=== PATIENT | male | born 1940 | race Caucasian/White ===

== ENCOUNTER 2019-01-04 13:12 | Outpatient (CLI) | payer MEDICARE, BC, OTHER ==
--- NOTE | 2019-01-04 14:24 | CT ---
CT abdomen and pelvis noncontrast HISTORY: Hematuria. FINDINGS: Each renal collecting system, ureter, and urinary bladder are decompressed. Within the mid left ureter is a 2 mm calculus. There is a 2 mm calculus within a nondilated calyx at the superior pole left kidney and a 3 mm calculus at the inferior pole. A 3 mm calculus is also present within a n ondilated calyx at the midportion right kidney. Lack of contrast limits evaluation for other abnormalities. Calcification throughout the arterial str uctures with mild ectasia of the lower abdominal aorta. Posterior disc bulge at the L4-5 level. Degenerative changes throughout the lumbar spine. Gallbladder surgically absent. IMPRESSION: Tiny nonobstructing mid left ureteral calculus. Additional small nonobstructing bilateral renal calculi. Atherosclerosis.
== END 2019-01-04 13:13 | disposition home or self-care (01) ==
LOC: SCSCT 13:12
PROVIDERS: ATTEND Family Medicine
DX: R31.29 Other microscopic hematuria (principal); N20.2 Calculus of kidney with calculus of ureter; I70.90 Unspecified atherosclerosis
CPT/HCPCS: 74176

== ENCOUNTER 2019-03-22 13:03 | Outpatient (CLI) | payer MEDICARE, BC, OTHER ==
--- NOTE | 2019-03-22 13:46 | ULT ---
RIGHT LOWER EXTREMITY VENOUS DUPLEX STUDY: INDICATIONS: Right lower extremity pain and edema. TECHNIQUE: The veins of the right lower extremity are evaluated with color Doppler, spectral analysis and compre ssion. FINDINGS: The deep veins show normal blood flow and compression. No evidence of DVT. Soft tissue ultrasound of the lateral mid tibial region, performed in an area of palpable concern. There is a hypoechoic area i n the subcutaneous tissues, measuring approximately 0.5 x 2.0 x 2.8 cm, which may represent focal flu id. IMPRESSION: 1. No evidence of right lower extremity deep venous thrombosis. 2. In the lateral right nam region at area of concern is a hypoechoic collection with measurements g iven above. POS: [facility]
== END 2019-03-22 13:04 | disposition home or self-care (01) ==
LOC: SCSULT 13:03
PROVIDERS: ATTEND Family Medicine
DX: M79.89 Other specified soft tissue disorders (principal); R60.0 Localized edema

== ENCOUNTER 2019-06-07 07:33 | Outpatient (CLI) | payer MEDICARE, BC, OTHER ==
--- NOTE | 2019-06-07 12:23 | PET ---
PET CT: HISTORY: A 78-year-old male with diffuse large B-cell lymphoma. The patient was found to have a lesion behind his right orbit on an MRI which is not available for correlation. The patient has been in remission since 2013 after 4 rounds of [facility]. Exam requested to evaluate for recurrence/relapse and subseque nt therapy. TECHNIQUE: PET scanning with CT attenuation correction was performed from the vertex through the proximal thighs following the intravenous administration of 10.7 mCi [id number]. COMPARISON: PET scan of 11/12/2013. FINDINGS: No harry hypermetabolism is seen in the neck, chest, axillae, abdomen, pelvis, or inguinal regions. No hypermetabolic pulmonary nodules, liver, adrenal, or skeletal lesions are seen. There is focal increased uptake noted in the anterior aspect of the oral cavity with an SUV of 7. Th is is generally artifactual. Recommend direct visualization. The CT scan used for attenuation correction demonstrates no evidence of pleural effusions or ascites. The spleen is enlarged measuring 16.5 cm in length. IMPRESSION: 1. No evidence of viable lymphoma in the lymph nodes of the neck, chest, abdomen, or pelvis. 2. Nonspecific uptake in the anterior oral cavity is likely artifactual. Recommend direct visualiza tion. 3. Splenomegaly. POS: [facility]
== END 2019-06-07 07:34 | disposition home or self-care (01) ==
LOC: PET 07:33
PROVIDERS: ATTEND Internal Medicine Medical Oncology
DX: C83.30 Diffuse large B-cell lymphoma, unspecified site (principal); R16.1 Splenomegaly, not elsewhere classified
CPT/HCPCS: 78815; A9552

== ENCOUNTER 2020-08-21 12:25 | Outpatient (CLI) | payer MEDICARE, BC, OTHER | END 2020-08-21 12:26 | disposition home or self-care (01) | LOC: BICULT 12:25 | PROVIDERS: ATTEND Urology | DX: N28.89 Other specified disorders of kidney and ureter (principal) | CPT/HCPCS: 76770 ==

== ENCOUNTER 2021-01-19 10:56 | Outpatient (CLI) | payer MEDICARE, BC, OTHER ==
[2021-01-19 12:30] LABS: Hemoglobin 13.9 g/dL (13.5-17.5); Mean Corpuscular HGB CONC 31.7 g/dL (32.0-36.0); Mean Corpuscular Hemoglobin 27.3 pg (27.0-33.0); Mean Corpuscular Volume 86.1 fl (81.2-95.1); Mean Platelet Volume 9.3 fl (7.4-10.4); Platelet Count 140 10x3/uL (150-450); RBC Distribution Width 15.8 % (11.5-14.5); Red Blood Cell (RBC) Count 5.09 10x6/uL (4.32-5.72); White Blood Cell (WBC) Count 8.5 10x3/uL (3.5-10.5)
[2021-01-19 12:41] LABS: Anion Gap 14 mmol/L (10-20); BUN (Urea Nitrogen) 33 mg/dL (8.4-25.7); Calc. Creatinine Clearance 0 mL/min (70-130); Carbon Dioxide 21 mmol/L (23-31); Chloride 109 mmol/L (98-107); Glucose 103 mg/dL (83-110); Potassium 4.1 mmol/L (3.5-5.1); Sodium 140 mmol/L (136-145)
[2021-01-19 12:47] LABS: PTT 28.5 sec (22.0-33.0); Prothrombin Time 10.7 sec (9.5-12.1)
[2021-01-19 22:56] LABS: SARS-CoV-2 PCR by NAA Not Detected (NotDetected)
== END 2021-01-19 10:57 | disposition home or self-care (01) ==
LOC: LABBT 10:56
PROVIDERS: ATTEND Urology
DX: Z01.818 Encounter for other preprocedural examination (principal); N40.1 Benign prostatic hyperplasia with lower urinary tract symptoms; R33.8 Other retention of urine; N20.0 Calculus of kidney; R97.20 Elevated prostate specific antigen [PSA]; N28.89 Other specified disorders of kidney and ureter; Z20.822 Contact with and (suspected) exposure to COVID-19
CPT/HCPCS: 80048; 85027; 85610; 85730; 93005; U0003; U0005; 81001; 87077; 87086; 93010

== ENCOUNTER 2021-01-22 08:17 | Observation (INO) | payer MEDICARE, BC, OTHER ==
[2021-01-22] MEDS ORDERED: Levofloxacin 500 mg/D5W 100 ml Premix Bag ONE (10:08)
[2021-01-22] MEDS ORDERED: B & O 30 MG SUPP ONE (11:08)
[2021-01-22] MEDS ORDERED: Fentanyl 100 MCG/2 ML VIAL ONE (11:26)
[2021-01-22] MEDS ORDERED: hydrALAZINE 20 MG/ML VIAL ONE (13:26)
[2021-01-22] MEDS ORDERED: Morphine 4 MG/ML VIAL ONE ×2 (13:44→13:59)
[2021-01-22] MEDS ORDERED: ePHEDrine Sulfate 50 MG/10 ML VIAL ONE (13:47)
[2021-01-22 14:51] LABS: Troponin I Less than 0.010 ng/mL (< 0.028)
[2021-01-22 14:55] LABS: Hemoglobin 13.9 g/dL (14.0-18.0); Mean Corpuscular HGB CONC 34.1 g/dL (32.0-36.0); Mean Corpuscular Hemoglobin 29.4 pg (27.0-31.0); Mean Corpuscular Volume 86.2 fL (78.0-98.0); Mean Platelet Volume 8.1 fL (7.4-10.4); Platelet Count 154 thou/uL (130-400); Red Blood Cell (RBC) Count 4.74 mill/uL (4.70-6.10); White Blood Cell (WBC) Count 7.2 thou/uL (4.8-10.8)
[2021-01-22 14:57] LABS: Anion Gap 12 mmol/L (10-20); BUN (Urea Nitrogen) 32 mg/dL (8.4-25.7); Calc. Creatinine Clearance 52 mL/min (70-130); Calcium 9.1 mg/dL (7.8-10.44); Carbon Dioxide 22 mmol/L (23-31); Chloride 109 mmol/L (98-107); Glucose 121 mg/dL (83-110); Potassium 3.5 mmol/L (3.5-5.1); Sodium 139 mmol/L (136-145)
[2021-01-22 15:05] LABS: INR-International Normal Ratio 1.1; PTT 31.1 sec (22.9-36.1); Prothrombin Time 14.1 sec (12.0-14.7)
[2021-01-22 15:18] LABS: Band 1 % (5-11); Eosinophils 1 % (0-10); Lymphocytes 16 % (21-51); MDiff Complete? YES; Monocytes 20 % (0-10); Neutrophil 48 % (42-75); Platelet Morphology Comment Appears Adequate; RBC Morphology Normal; Reactive Lymphocytes 13 % (0-10)
[2021-01-22] MEDS ORDERED: Acetaminophen 325 MG TAB PO PRN (16:14)
[2021-01-22] MEDS ORDERED: Ondansetron PF 4 MG/2 ML Vial IVP PRN (16:14)
[2021-01-22] MEDS ORDERED: Calcium Carbonate 500 MG ChewTAB PO PRN (16:14)
[2021-01-22] MEDS ORDERED: Senokot S 8.6-50 MG TAB PO PRN (16:14)
[2021-01-22] MEDS ORDERED: Guaifenesin DM 100-10/5 ML UDCUP PO PRN (16:14)
[2021-01-22] MEDS ORDERED: Bisacodyl 10 MG SUPP PR PRN (16:14)
[2021-01-22 16:29] LABS: Troponin I 0.011 ng/mL (< 0.028)
[2021-01-22 18:28] VITALS: BMI 27.2
[2021-01-22] MEDS: Sodium Chloride 5% Opth 15 ML BOT EA EYE SCH (18:34)
[2021-01-22] MEDS: methylPREDNISolone Sod Succ 40 MG VIAL IVP SCH (21:04)
[2021-01-23 04:52] LABS: #Lymphocytes 0.6 thou/uL (1.20-3.40); #Monocytes 0.4 thou/uL (0.11-0.59); %Lymphocytes 6.2 % (21.0-51.0); %Monocytes 4.3 % (0.0-10.0); %Neutrophils 89.4 % (42.0-75.0); Hemoglobin 13.7 g/dL (14.0-18.0); Mean Corpuscular HGB CONC 33.4 g/dL (32.0-36.0); Mean Corpuscular Hemoglobin 28.5 pg (27.0-31.0); Mean Corpuscular Volume 85.3 fL (78.0-98.0); Mean Platelet Volume 7.9 fL (7.4-10.4); Platelet Count 157 thou/uL (130-400); RBC Distribution Width 14.8 % (11.5-14.5); Red Blood Cell (RBC) Count 4.79 mill/uL (4.70-6.10); White Blood Cell (WBC) Count 8.9 thou/uL (4.8-10.8)
[2021-01-23 05:46] LABS: AST (SGOT) 35 U/L (5-34); Anion Gap 19 mmol/L (10-20); BUN (Urea Nitrogen) 24 mg/dL (8.4-25.7); Calc. Creatinine Clearance 56 mL/min (70-130); Calcium 8.4 mg/dL (7.8-10.44); Carbon Dioxide 13 mmol/L (23-31); Chloride 107 mmol/L (98-107); Globulin 2.7 g/dL (2.4-3.5); Glucose 143 mg/dL (83-110); Potassium 4.5 mmol/L (3.5-5.1); Protein, Total 6.7 g/dL (5.8-8.1); Sodium 134 mmol/L (136-145)
[2021-01-23 06:06] LABS: Alkaline Phosphatase 89 U/L (40-110)
[2021-01-23 06:08] LABS: ALT (SGPT) 27 U/L (8-55)
[2021-01-23] MEDS: methylPREDNISolone Sod Succ 40 MG VIAL IVP SCH ×2 (07:24→14:40)
[2021-01-23] MEDS ORDERED: Polyethylene Glycol 3350 17 GM Packet PO SCH (09:00)
[2021-01-23] MEDS ORDERED: Tamsulosin HCl 0.4 MG CAP PO SCH (09:00)
[2021-01-23] MEDS ORDERED: Amlodipine 5 MG TAB PO SCH (09:00)
[2021-01-23] MEDS: Sodium Chloride 5% Opth 15 ML BOT EA EYE SCH ×2 (09:16→13:20)
[2021-01-23] MEDS ORDERED: Ferrous Sulfate 325 MG TAB PO SCH (12:00)
[2021-01-23 13:17] LABS: Anion Gap 15 mmol/L (10-20); BUN (Urea Nitrogen) 26 mg/dL (8.4-25.7); Calc. Creatinine Clearance 58 mL/min (70-130); Carbon Dioxide 18 mmol/L (23-31); Chloride 104 mmol/L (98-107); Glucose 166 mg/dL (83-110); Magnesium 1.6 mg/dL (1.6-2.6); Phosphorus 3.3 mg/dL (2.3-4.7); Potassium 3.7 mmol/L (3.5-5.1); Sodium 133 mmol/L (136-145)
[2021-01-23 13:28] VITALS: BP 130/78; TEMP 98
== END 2021-01-23 16:19 | disposition home or self-care (01) ==
LOC: SDC 08:17 → 2NO 16:15
PROVIDERS: ADMIT Internal Medicine; ATTEND Internal Medicine
PROC: 0T7D8DZ Dilation of Urethra with Intraluminal Device, Via Natural or Artificial Opening Endoscopic (ICD-10-PCS; principal; 2021-01-22)
DX: N40.1 Benign prostatic hyperplasia with lower urinary tract symptoms (principal); R33.8 Other retention of urine; R06.02 Shortness of breath; R07.2 Precordial pain; I12.9 Hypertensive chronic kidney disease with stage 1 through stage 4 chronic kidney disease, or unspecified chronic kidney disease; N18.30 Chronic kidney disease, stage 3 unspecified; D63.1 Anemia in chronic kidney disease; K21.9 Gastro-esophageal reflux disease without esophagitis; E87.2 Acidosis; E87.1 Hypo-osmolality and hyponatremia; M19.90 Unspecified osteoarthritis, unspecified site; N20.0 Calculus of kidney; Z85.72 Personal history of non-Hodgkin lymphomas; Z85.828 Personal history of other malignant neoplasm of skin; Z87.891 Personal history of nicotine dependence; Z79.82 Long term (current) use of aspirin; Z79.899 Other long term (current) drug therapy; Z88.5 Allergy status to narcotic agent
CPT/HCPCS: 71045; 80048 ×2; 80053; 83735; 83880; 84100; 84484 ×2; 85025 ×2; 85379; 85610; 85730; 87040; 93005; 94640; 96374; 96376; 97139 ×4; C9740; G0378 ×2; L8699; 36415; 93010; J0360; J1956; J2270; J2920; J3010; J7620

== ENCOUNTER 2021-01-24 18:09 | Emergency (ER) | payer MEDICARE, BC, OTHER ==
[2021-01-24] MEDS ORDERED: Morphine 4 MG/ML VIAL ONE (19:51)
== END 2021-01-24 22:19 | disposition home or self-care (01) ==
LOC: ERS 18:09
DX: T83.091A Other mechanical complication of indwelling urethral catheter, initial encounter (principal); R33.9 Retention of urine, unspecified; I10 Essential (primary) hypertension; Z87.891 Personal history of nicotine dependence
CPT/HCPCS: 51702; J2270

== ENCOUNTER 2023-08-09 12:28 | Observation (INO) | payer MEDICARE, BC, OTHER ==
[2023-08-09] MEDS ORDERED: Senokot S 8.6-50 MG TAB PO PRN (16:48)
[2023-08-09] MEDS: Pantoprazole DR 40 MG TAB PO SCH (17:57)
[2023-08-09] MEDS: Sodium Chloride 0.9% 500 ML IV SCH (17:57)
[2023-08-09 19:04] LABS: Band 2 % (5-11); Hypochromia SLIGHT = 6-15 cells HPF (0-5); Lymphocytes 51 % (21-51); Monocytes 3 % (0-10); Neutrophil 45 % (42-75); Nucleated RBC (Manual Ct) 6 % (0); Platelet Adequacy Comment Platelets Decreased; Polychromasia SLIGHT = 2-3 cells HPF (0-2); Tear Drops SLIGHT = 2-5 cells HPF (0-1)
[2023-08-09 19:09] LABS: Hematocrit 25.9 % (42.0-52.0); Hemoglobin 8.3 g/dL (14.0-18.0); Mean Corpuscular Hemoglobin 30.2 pg (27.0-31.0); Mean Corpuscular Volume 94.2 fL (78.0-98.0); Mean Platelet Volume 10.3 fL (7.4-10.4); Platelet Count 86 10x3/uL (130-400); RBC Distribution Width 16.2 % (11.5-14.5); Red Blood Cell (RBC) Count 2.75 mill/uL (4.70-6.10)
[2023-08-09] MEDS: Atorvastatin Calcium 10 MG TAB PO SCH (21:15)
[2023-08-09 23:55] LABS: Hematocrit 23.4 % (42.0-52.0); Hemoglobin 7.4 g/dL (14.0-18.0); Mean Corpuscular HGB CONC 31.6 g/dL (32.0-36.0); Mean Corpuscular Hemoglobin 29.6 pg (27.0-31.0); Mean Corpuscular Volume 93.6 fL (78.0-98.0); Platelet Count 92 10x3/uL (130-400); RBC Distribution Width 16.3 % (11.5-14.5)
[2023-08-10 00:35] LABS: Lymphocytes 50 % (21-51); Monocytes 3 % (0-10); Myelocyte 2 % (0-0); Neutrophil 36 % (42-75); Nucleated RBC (Manual Ct) 3 % (0); Platelet Adequacy Comment Platelets Decreased; Polychromasia SLIGHT = 2-3 cells HPF (0-2); Tear Drops SLIGHT = 2-5 cells HPF (0-1)
[2023-08-10 00:48] LABS: Reflex for Review?? YES
[2023-08-10 06:35] LABS: Hematocrit 23.3 % (42.0-52.0); Hemoglobin 7.5 g/dL (14.0-18.0); Mean Corpuscular HGB CONC 32.2 g/dL (32.0-36.0); Mean Corpuscular Hemoglobin 29.5 pg (27.0-31.0); Mean Corpuscular Volume 91.7 fL (78.0-98.0); Mean Platelet Volume 9.9 fL (7.4-10.4); Platelet Count 92 10x3/uL (130-400); RBC Distribution Width 16.5 % (11.5-14.5); Red Blood Cell (RBC) Count 2.54 mill/uL (4.70-6.10)
[2023-08-10 06:46] LABS: Anion Gap 10 mmol/L (10-20); BUN (Urea Nitrogen) 63 mg/dL (8.4-25.7); Calc. Creatinine Clearance 0 mL/min (70-130); Carbon Dioxide 18 mmol/L (23-31); Chloride 116 mmol/L (98-107); Estimated GFR 48; Glucose 143 mg/dL (83-110); Potassium 4.2 mmol/L (3.5-5.1); Sodium 140 mmol/L (136-145)
[2023-08-10 07:00] LABS: Eosinophils 1 % (0-10); Lymphocytes 49 % (21-51); Monocytes 2 % (0-10); Myelocyte 5 % (0-0); Neutrophil 24 % (42-75); Nucleated RBC (Manual Ct) 6 % (0); Platelet Adequacy Comment Platelets Decreased; Polychromasia SLIGHT = 2-3 cells HPF (0-2); Promyelocytes 1 % (0-0)
[2023-08-10 08:40] LABS: Iron 43 ug/dL (65-175); Iron Binding Capacity, Total 196 mcg/dL (261-462)
[2023-08-10] MEDS: Pantoprazole DR 40 MG TAB PO SCH (08:49)
[2023-08-10] MEDS: Enoxaparin 40 MG (0.4 mL) SYRINGE SC SCH (10:42)
[2023-08-10] MEDS: Pantoprazole 40 MG VIAL IVP SCH (15:53)
[2023-08-11 05:34] LABS: Hematocrit 26.4 % (42.0-52.0); Hemoglobin 8.8 g/dL (14.0-18.0); Mean Corpuscular HGB CONC 33.3 g/dL (32.0-36.0); Mean Corpuscular Volume 90.1 fL (78.0-98.0); Mean Platelet Volume 9.2 fL (7.4-10.4); Platelet Count 90 10x3/uL (130-400); Red Blood Cell (RBC) Count 2.93 mill/uL (4.70-6.10)
[2023-08-11 05:41] LABS: Anion Gap 13 mmol/L (10-20); BUN (Urea Nitrogen) 33 mg/dL (8.4-25.7); Calc. Creatinine Clearance 0 mL/min (70-130); Calcium 8.6 mg/dL (7.8-10.44); Carbon Dioxide 19 mmol/L (23-31); Chloride 113 mmol/L (98-107); Estimated GFR 48; Glucose 135 mg/dL (83-110); Potassium 3.8 mmol/L (3.5-5.1); Sodium 141 mmol/L (136-145)
[2023-08-11 06:11] LABS: Band 2 % (5-11); Eosinophils 1 % (0-10); Hypochromia SLIGHT = 6-15 cells HPF (0-5); Lymphocytes 33 % (21-51); Metamyelocyte 1 % (0-0); Monocytes 4 % (0-10); Neutrophil 36 % (42-75); Nucleated RBC (Manual Ct) 25 % (0); Platelet Adequacy Comment Platelets Decreased; Polychromasia SLIGHT = 2-3 cells HPF (0-2)
[2023-08-11] MEDS ORDERED: Lidocaine 1% PF 5 ML VIAL ONE (09:23)
[2023-08-11] MEDS ORDERED: PROPOFOL 20 ML ONE (09:26)
[2023-08-11 11:49] VITALS: BP 157/73; TEMP 97.7
[2023-08-11] MEDS: Pantoprazole 40 MG VIAL IVP SCH (12:57)
== END 2023-08-11 13:43 | disposition home or self-care (01) ==
LOC: T4-B 15:26
PROVIDERS: ADMIT Internal Medicine; ATTEND Internal Medicine
PROC: 0W3P8ZZ Control Bleeding in Gastrointestinal Tract, Via Natural or Artificial Opening Endoscopic (ICD-10-PCS; principal; 2023-08-11)
DX: K92.1 Melena (principal); D50.0 Iron deficiency anemia secondary to blood loss (chronic); K31.7 Polyp of stomach and duodenum; D61.818 Other pancytopenia; K21.9 Gastro-esophageal reflux disease without esophagitis; I10 Essential (primary) hypertension; Z88.5 Allergy status to narcotic agent; Z88.6 Allergy status to analgesic agent; Z90.49 Acquired absence of other specified parts of digestive tract; Z87.891 Personal history of nicotine dependence; Z79.899 Other long term (current) drug therapy
CPT/HCPCS: 36430; 43255; 80048 ×2; 82728; 83540; 83550; 85025 ×3; 86850; 86900; 86901; 86920; P9016; 36415; 85060; 88184; 88185; 88189; C9113; J1650; J2704; J7030

== ENCOUNTER 2023-10-03 09:38 | Day surgery (SDC) | payer MEDICARE, BC, OTHER ==
[2023-10-03] MEDS ORDERED: Acetaminophen 500 MG TAB ONE (10:27)
[2023-10-03] MEDS ORDERED: diphenhydrAMINE 25 MG CAP ONE (10:27)
[2023-10-03] MEDS: Acetaminophen 500 MG TAB PO SCH (10:29)
[2023-10-03] MEDS: diphenhydrAMINE 25 MG CAP PO SCH (10:29)
[2023-10-03] MEDS: Furosemide 20 MG (2 mL) VIAL SLOW IVP SCH (12:33)
[2023-10-03 16:19] VITALS: BP 167/76; TEMP 98.5
== END 2023-10-03 16:20 | disposition home or self-care (01) ==
LOC: ONC/OP 09:38
PROVIDERS: ATTEND Nurse Practitioner Family
DX: D64.9 Anemia, unspecified (principal); D69.6 Thrombocytopenia, unspecified
CPT/HCPCS: 36430; 86850; 86900; 86901; 86920; J1940; P9016; P9035

== ENCOUNTER 2023-10-12 16:09 | Day surgery (SDC) | payer MEDICARE, BC, OTHER ==
[2023-10-12] MEDS ORDERED: diphenhydrAMINE 25 MG CAP ONE (16:23)
[2023-10-12] MEDS ORDERED: Acetaminophen 500 MG TAB ONE (16:23)
[2023-10-12] MEDS: Acetaminophen 500 MG TAB PO SCH (16:29)
[2023-10-12] MEDS: diphenhydrAMINE 25 MG CAP PO SCH (16:30)
[2023-10-12 17:49] VITALS: BP 133/63; TEMP 98.5
== END 2023-10-12 17:49 | disposition home or self-care (01) ==
LOC: ONC/OP 16:09
PROVIDERS: ATTEND Nurse Practitioner Adult Health
DX: D69.6 Thrombocytopenia, unspecified (principal); Z88.6 Allergy status to analgesic agent; Z88.5 Allergy status to narcotic agent
CPT/HCPCS: 36430; 86850; 86900; 86901; P9035

== ENCOUNTER 2023-10-20 10:22 | Day surgery (SDC) | payer MEDICARE, BC, OTHER ==
[2023-10-20] MEDS ORDERED: Acetaminophen 500 MG TAB ONE (11:15)
[2023-10-20] MEDS ORDERED: diphenhydrAMINE 25 MG CAP ONE (11:15)
[2023-10-20] MEDS: Acetaminophen 500 MG TAB PO SCH (11:16)
[2023-10-20] MEDS: diphenhydrAMINE 25 MG CAP PO SCH (11:17)
[2023-10-20 13:36] VITALS: BP 137/64; TEMP 98
== END 2023-10-20 13:05 | disposition home or self-care (01) ==
LOC: ONC/OP 10:22
PROVIDERS: ATTEND Internal Medicine
DX: D69.6 Thrombocytopenia, unspecified (principal); D64.9 Anemia, unspecified; Z88.6 Allergy status to analgesic agent; Z88.5 Allergy status to narcotic agent
CPT/HCPCS: 36430; 86850; 86900; 86901; P9035

== ENCOUNTER 2023-10-23 12:51 | Day surgery (SDC) | payer MEDICARE, BC, OTHER ==
[2023-10-23] MEDS ORDERED: Acetaminophen 500 MG TAB ONE (13:20)
[2023-10-23] MEDS ORDERED: diphenhydrAMINE 25 MG CAP ONE (13:20)
[2023-10-23] MEDS: Acetaminophen 500 MG TAB PO SCH (13:21)
[2023-10-23] MEDS: diphenhydrAMINE 25 MG CAP PO SCH (13:22)
[2023-10-23 15:01] VITALS: TEMP 98
[2023-10-23 15:07] VITALS: BP 153/69
== END 2023-10-23 15:07 | disposition home or self-care (01) ==
LOC: ONC/OP 12:51
PROVIDERS: ATTEND Internal Medicine
DX: D64.9 Anemia, unspecified (principal); D69.6 Thrombocytopenia, unspecified
CPT/HCPCS: 36430; 86850; 86900; 86901; P9035

== ENCOUNTER 2023-10-30 12:28 | Day surgery (SDC) | payer MEDICARE, BC, OTHER ==
[2023-10-30] MEDS ORDERED: diphenhydrAMINE 25 MG CAP ONE (13:05)
[2023-10-30] MEDS ORDERED: Acetaminophen 500 MG TAB ONE (13:05)
[2023-10-30] MEDS: diphenhydrAMINE 25 MG CAP PO SCH (13:06)
[2023-10-30] MEDS: Acetaminophen 500 MG TAB PO SCH (13:06)
[2023-10-30 14:17] VITALS: BP 145/65; TEMP 98.3
== END 2023-10-30 14:20 | disposition home or self-care (01) ==
LOC: ONC/OP 12:28
PROVIDERS: ATTEND Internal Medicine
DX: D69.6 Thrombocytopenia, unspecified (principal); D64.9 Anemia, unspecified
CPT/HCPCS: 36430; 86850; 86900; 86901; P9035

== ENCOUNTER 2023-11-22 09:16 | Outpatient (CLI) | payer MEDICARE, BC | END 2023-11-22 09:17 | disposition home or self-care (01) | LOC: SCSMRI 09:16 | PROVIDERS: ATTEND Urology | DX: N28.89 Other specified disorders of kidney and ureter (principal) | CPT/HCPCS: 74183 ==

== ENCOUNTER 2023-11-22 13:37 | Day surgery (SDC) | payer MEDICARE, BC ==
[2023-11-22] MEDS ORDERED: diphenhydrAMINE 25 MG CAP PO SCH (14:15)
[2023-11-22] MEDS ORDERED: Acetaminophen 500 MG TAB ONE (14:35)
[2023-11-22] MEDS: Acetaminophen 500 MG TAB PO SCH (14:39)
[2023-11-22 15:30] VITALS: BP 132/58; TEMP 98.1
== END 2023-11-22 15:54 | disposition home or self-care (01) ==
LOC: ONC/OP 13:37
PROVIDERS: ATTEND Internal Medicine
DX: D64.9 Anemia, unspecified (principal); D69.6 Thrombocytopenia, unspecified; Z88.5 Allergy status to narcotic agent
CPT/HCPCS: 36430; 74183; 86850; 86900; 86901; P9035

== ENCOUNTER 2023-12-01 12:20 | Day surgery (SDC) | payer MEDICARE, BC ==
[2023-12-01] MEDS ORDERED: Acetaminophen 500 MG TAB ONE (13:39)
[2023-12-01] MEDS ORDERED: diphenhydrAMINE 25 MG CAP ONE (13:39)
[2023-12-01] MEDS: Acetaminophen 500 MG TAB PO SCH (13:40)
[2023-12-01] MEDS: diphenhydrAMINE 25 MG CAP PO SCH (13:40)
[2023-12-01 14:54] VITALS: BP 147/69; TEMP 98.2
== END 2023-12-01 14:49 | disposition home or self-care (01) ==
LOC: ONC/OP 12:20
PROVIDERS: ATTEND Internal Medicine
DX: D64.9 Anemia, unspecified (principal); D69.6 Thrombocytopenia, unspecified
CPT/HCPCS: 36430; 86850; 86900; 86901; P9035

== ENCOUNTER 2024-01-03 09:47 | Day surgery (SDC) | payer MEDICARE, BC ==
[2024-01-03] MEDS ORDERED: Acetaminophen 500 MG TAB ONE (11:10)
[2024-01-03] MEDS ORDERED: diphenhydrAMINE 25 MG CAP ONE (11:10)
[2024-01-03] MEDS: Acetaminophen 500 MG TAB PO SCH (11:11)
[2024-01-03] MEDS: diphenhydrAMINE 25 MG CAP PO SCH (11:11)
[2024-01-03 12:36] VITALS: TEMP 98.1
[2024-01-03 15:23] VITALS: BP 131/67
[2024-01-03 15:33] LABS: Bacteria/HPF None Seen HPF (None Seen); Bilirubin Negative (Negative); Blood, Urine 1+ (Negative); CAUTI Indications for Culture Immunosuppressed; Clarity Clear (Clear); Glucose, Urine (Dipstick) Normal (Negative); Ketone, Urine Negative (Negative); Leukocyte Negative Leu/uL (Negative); Nitrite Negative (Negative); Protein, Urine (Dipstick) 70 mg/dL (Neg-Trace); Specific Gravity, Urine 1.013 (1.002-1.036); Squamous Epithelial 0-3 HPF (0-3); Urobilinogen 3 mg/dL (Less than 2); WBC/HPF 0-3 HPF (0-3); pH, Urine 6.5 (5.0-9.0)
[2024-01-03 15:39] LABS: Urine Culture Reflex Yes Yes
== END 2024-01-03 15:26 | disposition home or self-care (01) ==
LOC: ONC/OP 09:47
PROVIDERS: ATTEND Internal Medicine
DX: D46.22 Refractory anemia with excess of blasts 2 (principal); D69.6 Thrombocytopenia, unspecified; C83.31 Diffuse large B-cell lymphoma, lymph nodes of head, face, and neck
CPT/HCPCS: 36430; 71046; 81001; 86850; 86900; 86901; 86920; 87040 ×2; 87086; J1642; P9016; P9035

== ENCOUNTER 2024-01-03 15:13 | Outpatient (CLI) | payer MEDICARE, BC | END 2024-01-03 15:14 | disposition home or self-care (01) | LOC: BICRAD 15:13 | PROVIDERS: ATTEND Internal Medicine | DX: C83.31 Diffuse large B-cell lymphoma, lymph nodes of head, face, and neck (principal); D46.22 Refractory anemia with excess of blasts 2 | CPT/HCPCS: 71046 ==

== ENCOUNTER 2024-01-09 15:04 | Inpatient (IN) | payer MEDICARE, BC ==
[2024-01-09 20:07] VITALS: BMI 27.6
[2024-01-09] MEDS ORDERED: Ondansetron PF 4 MG/2 ML Vial IVP PRN (21:31)
[2024-01-09] MEDS ORDERED: Acetaminophen 325 MG TAB PO PRN (21:31)
[2024-01-09] MEDS ORDERED: Ondansetron ODT 4 MG TAB PO PRN (21:31)
[2024-01-09] MEDS ORDERED: traMADol HCl 50 MG TAB PO PRN ×2 (21:31)
[2024-01-09] MEDS ORDERED: Senokot S 8.6-50 MG TAB PO PRN (21:31)
[2024-01-09] MEDS ORDERED: Acetaminophen 650 MG Suppository PR PRN (21:31)
[2024-01-09] MEDS: Sodium Chloride 0.9% 1,000 ML IV SCH (21:59)
[2024-01-09] MEDS: HYDROcodone/Acetaminophen 5/325 mg Tablet PO PRN (22:03)
[2024-01-09] MEDS: Senokot S 8.6-50 MG TAB PO SCH (23:05)
[2024-01-10 01:42] LABS: Magnesium 1.5 mg/dL (1.6-2.6)
[2024-01-10 01:54] LABS: Troponin I 0.325 ng/mL (< 0.028)
[2024-01-10 02:05] LABS: Hematocrit 19.6 % (42.0-52.0); Hemoglobin 5.9 g/dL (14.0-18.0)
[2024-01-10] MEDS: HYDROcodone/Acetaminophen 5/325 mg Tablet PO PRN ×2 (04:36→05:01)
[2024-01-10 05:00] LABS: #Basophils 0.32 10x3/uL (0.0-0.2); %Basophils 0.5 % (0.0-1.0); %Eosinophils 0.1 % (0.0-10.0); %Lymphocytes 6.3 % (21.0-51.0); %Monocytes 22.4 % (0.0-10.0); %Neutrophils 32.7 % (42.0-75.0); Hematocrit 18.7 % (42.0-52.0); Hemoglobin 5.5 g/dL (14.0-18.0); Mean Corpuscular HGB CONC 29.4 g/dL (32.0-36.0); Mean Corpuscular Hemoglobin 25.6 pg (27.0-31.0); Platelet Count 14 10x3/uL (130-400); RBC Distribution Width 18.4 % (11.5-14.5); Red Blood Cell (RBC) Count 2.15 mill/uL (4.70-6.10)
[2024-01-10 05:02] LABS: Anion Gap 14 mmol/L (10-20); BUN (Urea Nitrogen) 43 mg/dL (8.4-25.7); Calc. Creatinine Clearance 32 mL/min (70-130); Calcium 8.1 mg/dL (7.8-10.44); Carbon Dioxide 17 mmol/L (23-31); Chloride 103 mmol/L (98-107); Critical Call Chem Troponin I RESULT DECREASING; Estimated GFR 28; Glucose 156 mg/dL (83-110); Potassium 3.5 mmol/L (3.5-5.1); Sodium 130 mmol/L (136-145)
[2024-01-10 06:39] LABS: Anisocytosis SLIGHT = 6-15 cells HPF (0-5); Band 6 % (5-11); Hypochromia SLIGHT = 6-15 cells HPF (0-5); Lymphocytes 24 % (21-51); Metamyelocyte 3 % (0-0); Microcytosis SLIGHT = 6-15 cells HPF (0-5); Monocytes 7 % (0-10); Myelocyte 21 % (0-0); Neutrophil 25 % (42-75); Nucleated RBC (Manual Ct) 22 % (0); Platelet Adequacy Comment Significant Decrease; Polychromasia SLIGHT = 2-3 cells HPF (0-2); Promyelocytes 5 % (0-0); Smudge Cells 4.6 %
[2024-01-10] MEDS: Senokot S 8.6-50 MG TAB PO SCH (08:45)
[2024-01-10] MEDS ORDERED: Heparin 5,000 UNITS/ML VIAL SC SCH (09:00)
[2024-01-10 13:03] LABS: Hematocrit 22.9 % (42.0-52.0); Hemoglobin 7.5 g/dL (14.0-18.0); Platelet Count 14 10x3/uL (130-400)
[2024-01-10] MEDS: Magnesium 2 GM/50 ML(in water) 2 GM in Premix 1 BAG IVPB SCH (14:10)
[2024-01-10 16:33] LABS: Hematocrit 22.5 % (42.0-52.0); Hemoglobin 7.1 g/dL (14.0-18.0)
[2024-01-10] MEDS ORDERED: oxyCODONE 5 MG TAB PO PRN (17:05)
[2024-01-10] MEDS: oxyCODONE 5 MG TAB PO PRN (17:24)
[2024-01-10] MEDS: Acetaminophen 500 MG TAB PO SCH (17:44)
[2024-01-10] MEDS: Atorvastatin Calcium 10 MG TAB PO SCH (20:36)
[2024-01-10] MEDS: Potassium Citrate 10 MEQ TAB PO SCH (20:36)
[2024-01-11 06:22] LABS: Hematocrit 20.8 % (42.0-52.0); Hemoglobin 6.6 g/dL (14.0-18.0); Mean Corpuscular HGB CONC 31.7 g/dL (32.0-36.0); Mean Corpuscular Hemoglobin 26.6 pg (27.0-31.0); Mean Corpuscular Volume 83.9 fL (78.0-98.0); Platelet Count 28 10x3/uL (130-400); RBC Distribution Width 17.1 % (11.5-14.5); Red Blood Cell (RBC) Count 2.48 mill/uL (4.70-6.10)
[2024-01-11 06:36] LABS: ALT (SGPT) 16 U/L (8-55); AST (SGOT) 63 U/L (5-34); Albumin 3.5 g/dL (3.4-4.8); Alkaline Phosphatase 113 U/L (40-110); Anion Gap 15 mmol/L (10-20); BUN (Urea Nitrogen) 40 mg/dL (8.4-25.7); Calc. Creatinine Clearance 40 mL/min (70-130); Calcium 8.2 mg/dL (7.8-10.44); Carbon Dioxide 19 mmol/L (23-31); Chloride 102 mmol/L (98-107); Estimated GFR 35; Globulin 2.2 g/dL (2.4-3.5); Glucose 149 mg/dL (83-110); Potassium 3.8 mmol/L (3.5-5.1); Protein, Total 5.7 g/dL (5.8-8.1); Sodium 132 mmol/L (136-145); Uric Acid 6.7 mg/dL (3.5-7.2)
[2024-01-11 06:59] LABS: Anisocytosis SLIGHT = 6-15 cells HPF (0-5); Band 4 % (5-11); Hypochromia SLIGHT = 6-15 cells HPF (0-5); Lymphocytes 4 % (21-51); Metamyelocyte 12 % (0-0); Monocytes 5 % (0-10); Myelocyte 38 % (0-0); Neutrophil 26 % (42-75); Nucleated RBC (Manual Ct) 31 % (0); Platelet Adequacy Comment Significant Decrease; Polychromasia MODERATE = 3-4 cells HPF (0-2); Promyelocytes 5 % (0-0); Smudge Cells 10.5 %; Tear Drops SLIGHT = 2-5 cells HPF (0-1)
[2024-01-11] MEDS: Pantoprazole DR 40 MG TAB PO SCH (09:02)
[2024-01-11] MEDS: Allopurinol 300 MG TAB PO SCH (09:02)
[2024-01-11] MEDS ORDERED: fentaNYL 50 mcg/mL 1 mL Vial ONE (12:47)
[2024-01-11] MEDS ORDERED: Sodium Bicarbonate 2.5 MEQ/5 ML SDV ONE (12:48)
[2024-01-11] MEDS ORDERED: Lidocaine 1% w/Epinephrine 1:100K 20 ML VIAL ONE (12:48)
[2024-01-11] MEDS ORDERED: Midazolam HCl 2 mg/2 ml Vial ONE (12:48)
[2024-01-11] MEDS ORDERED: Glycerin Adult Supp. (12 ct jar) PR PRN (13:15)
[2024-01-11] MEDS ORDERED: Polyethylene Glycol 3350 17 GM Packet PO PRN (13:15)
[2024-01-11] MEDS: Polyethylene Glycol 3350 17 GM Packet PO SCH (14:16)
[2024-01-12 01:09] LABS: Hematocrit 25.8 % (42.0-52.0); Hemoglobin 8.4 g/dL (14.0-18.0); Platelet Count 69 10x3/uL (130-400)
[2024-01-12 04:17] LABS: Hematocrit 25.9 % (42.0-52.0); Hemoglobin 8.4 g/dL (14.0-18.0); Mean Corpuscular HGB CONC 32.4 g/dL (32.0-36.0); Mean Corpuscular Volume 83.3 fL (78.0-98.0); Mean Platelet Volume 11.6 fL (7.4-10.4); Platelet Count 62 10x3/uL (130-400); RBC Distribution Width 16.6 % (11.5-14.5); Red Blood Cell (RBC) Count 3.11 mill/uL (4.70-6.10)
[2024-01-12 04:22] LABS: ALT (SGPT) 16 U/L (8-55); AST (SGOT) 58 U/L (5-34); Albumin 3.6 g/dL (3.4-4.8); Alkaline Phosphatase 111 U/L (40-110); Bilirubin, Direct 0.7 mg/dL (0.1-0.3); Bilirubin, Total 2.4 mg/dL (0.2-1.2); Protein, Total 6.2 g/dL (5.8-8.1)
[2024-01-12 04:49] LABS: ALT (SGPT) 16 U/L (8-55); AST (SGOT) 60 U/L (5-34); Albumin 3.6 g/dL (3.4-4.8); Alkaline Phosphatase 113 U/L (40-110); Anion Gap 12 mmol/L (10-20); BUN (Urea Nitrogen) 33 mg/dL (8.4-25.7); Bilirubin, Total 2.2 mg/dL (0.2-1.2); Calc. Creatinine Clearance 45 mL/min (70-130); Calcium 8.6 mg/dL (7.8-10.44); Carbon Dioxide 22 mmol/L (23-31); Chloride 102 mmol/L (98-107); D-Dimer Test 19.1 mcg/mL (0.27-0.43); Estimated GFR 39; Globulin 2.5 g/dL (2.4-3.5); Glucose 146 mg/dL (83-110); Potassium 4.1 mmol/L (3.5-5.1); Protein, Total 6.1 g/dL (5.8-8.1); Sodium 132 mmol/L (136-145)
[2024-01-12 05:02] LABS: Anisocytosis SLIGHT = 6-15 cells HPF (0-5); Band 6 % (5-11); Basophilic Stippling SLIGHT = 1-2 cells HPF (None Seen); Blast 2 % (0-0); Dohle Bodies SLIGHT; Hypochromia SLIGHT = 6-15 cells HPF (0-5); Lymphocytes 6 % (21-51); Metamyelocyte 10 % (0-0); Microcytosis SLIGHT = 6-15 cells HPF (0-5); Monocytes 12 % (0-10); Myelocyte 28 % (0-0); Neutrophil 29 % (42-75); Nucleated RBC (Manual Ct) 18 % (0); Platelet Adequacy Comment Platelets Decreased; Polychromasia SLIGHT = 2-3 cells HPF (0-2); Promyelocytes 4 % (0-0); Reactive Lymphocytes 3 % (0-10); Toxic Granulation SLIGHT
[2024-01-12] MEDS: Polyethylene Glycol 3350 17 GM Packet PO SCH (08:03)
[2024-01-12] MEDS: Potassium Citrate 10 MEQ TAB PO SCH (08:44)
[2024-01-13 05:34] LABS: Hematocrit 26.2 % (42.0-52.0); Hemoglobin 8.3 g/dL (14.0-18.0); Mean Corpuscular HGB CONC 31.7 g/dL (32.0-36.0); Mean Corpuscular Hemoglobin 26.9 pg (27.0-31.0); Mean Corpuscular Volume 84.8 fL (78.0-98.0); Platelet Count 52 10x3/uL (130-400); RBC Distribution Width 17.6 % (11.5-14.5); Red Blood Cell (RBC) Count 3.09 mill/uL (4.70-6.10)
[2024-01-13 05:48] LABS: ALT (SGPT) 13 U/L (8-55); AST (SGOT) 55 U/L (5-34); Albumin 3.4 g/dL (3.4-4.8); Alkaline Phosphatase 121 U/L (40-110); Anion Gap 12 mmol/L (10-20); BUN (Urea Nitrogen) 29 mg/dL (8.4-25.7); Bilirubin, Direct 0.9 mg/dL (0.1-0.3); Bilirubin, Total 2.7 mg/dL (0.2-1.2); Calc. Creatinine Clearance 43 mL/min (70-130); Calcium 8.4 mg/dL (7.8-10.44); Carbon Dioxide 22 mmol/L (23-31); Chloride 102 mmol/L (98-107); Estimated GFR 38; Globulin 2.6 g/dL (2.4-3.5); Glucose 126 mg/dL (83-110); Potassium 4.1 mmol/L (3.5-5.1); Sodium 132 mmol/L (136-145); Uric Acid 6.8 mg/dL (3.5-7.2)
[2024-01-13 05:49] LABS: D-Dimer Test 17.4 mcg/mL (0.27-0.43); Phosphorus 3.5 mg/dL (2.3-4.7)
[2024-01-13 06:13] LABS: Band 8 % (5-11); Blast 2 % (0-0); Dohle Bodies SLIGHT; Hypochromia SLIGHT = 6-15 cells HPF (0-5); Lymphocytes 6 % (21-51); Metamyelocyte 10 % (0-0); Monocytes 13 % (0-10); Myelocyte 30 % (0-0); Neutrophil 20 % (42-75); Nucleated RBC (Manual Ct) 8 % (0); Ovalocytes SLIGHT = 2-5 cells HPF (0-1); Platelet Adequacy Comment Platelets Decreased; Polychromasia MODERATE = 3-4 cells HPF (0-2); Promyelocytes 9 % (0-0); Reactive Lymphocytes 1 % (0-10); Tear Drops SLIGHT = 2-5 cells HPF (0-1); Toxic Granulation SLIGHT
[2024-01-14 09:15] LABS: Fibrinogen 321 mg/dL (253-463)
[2024-01-14 09:18] LABS: ALT (SGPT) 12 U/L (8-55); AST (SGOT) 58 U/L (5-34); Albumin 3.1 g/dL (3.4-4.8); Alkaline Phosphatase 130 U/L (40-110); Anion Gap 15 mmol/L (10-20); BUN (Urea Nitrogen) 38 mg/dL (8.4-25.7); Bilirubin, Direct 0.8 mg/dL (0.1-0.3); Bilirubin, Total 3.2 mg/dL (0.2-1.2); Calc. Creatinine Clearance 36 mL/min (70-130); Carbon Dioxide 20 mmol/L (23-31); Chloride 104 mmol/L (98-107); Estimated GFR 31; Globulin 2.6 g/dL (2.4-3.5); Glucose 161 mg/dL (83-110); Potassium 4.5 mmol/L (3.5-5.1); Protein, Total 5.7 g/dL (5.8-8.1); Sodium 134 mmol/L (136-145); Uric Acid 8.1 mg/dL (3.5-7.2)
[2024-01-14 09:22] LABS: Phosphorus 5.9 mg/dL (2.3-4.7)
[2024-01-14 09:43] LABS: D-Dimer Test Greater than 20.00 mcg/mL (0.27-0.43)
[2024-01-14 10:56] LABS: Hematocrit 25.1 % (42.0-52.0); Hemoglobin 7.7 g/dL (14.0-18.0); Mean Corpuscular HGB CONC 30.7 g/dL (32.0-36.0); Mean Corpuscular Hemoglobin 26.5 pg (27.0-31.0); Mean Corpuscular Volume 86.3 fL (78.0-98.0); Mean Platelet Volume 9.2 fL (7.4-10.4); Platelet Count 40 10x3/uL (130-400); RBC Distribution Width 17.6 % (11.5-14.5); Red Blood Cell (RBC) Count 2.91 mill/uL (4.70-6.10)
[2024-01-14 12:26] LABS: Anisocytosis SLIGHT = 6-15 cells HPF (0-5); Band 5 % (5-11); Burr Cells SLIGHT = 2-5 cells HPF (0-1); Hypochromia SLIGHT = 6-15 cells HPF (0-5); Lymphocytes 6 % (21-51); Metamyelocyte 23 % (0-0); Microcytosis SLIGHT = 6-15 cells HPF (0-5); Myelocyte 25 % (0-0); Neutrophil 35 % (42-75); Nucleated RBC (Manual Ct) 5 % (0); Platelet Adequacy Comment Platelets Decreased; Polychromasia SLIGHT = 2-3 cells HPF (0-2); Promyelocytes 3 % (0-0); Smudge Cells 5.4 %
[2024-01-15 05:50] LABS: Fibrinogen 405 mg/dL (253-463)
[2024-01-15 05:51] LABS: Hematocrit 25.6 % (42.0-52.0); Hemoglobin 8.2 g/dL (14.0-18.0); Mean Corpuscular Hemoglobin 27.2 pg (27.0-31.0); Platelet Count 33 10x3/uL (130-400); RBC Distribution Width 17.2 % (11.5-14.5); Red Blood Cell (RBC) Count 3.01 mill/uL (4.70-6.10)
[2024-01-15 06:08] LABS: Phosphorus 6.7 mg/dL (2.3-4.7)
[2024-01-15 06:11] LABS: D-Dimer Test Greater than 20.00 mcg/mL (0.27-0.43)
[2024-01-15 06:13] LABS: ALT (SGPT) 10 U/L (8-55); AST (SGOT) 51 U/L (5-34); Alkaline Phosphatase 147 U/L (40-110); Anion Gap 18 mmol/L (10-20); BUN (Urea Nitrogen) 44 mg/dL (8.4-25.7); Bilirubin, Direct 1.3 mg/dL (0.1-0.3); Bilirubin, Total 3.9 mg/dL (0.2-1.2); Calc. Creatinine Clearance 34 mL/min (70-130); Calcium 7.9 mg/dL (7.8-10.44); Carbon Dioxide 17 mmol/L (23-31); Chloride 105 mmol/L (98-107); Estimated GFR 29; Glucose 134 mg/dL (83-110); Potassium 5.1 mmol/L (3.5-5.1); Sodium 135 mmol/L (136-145); Uric Acid 8.4 mg/dL (3.5-7.2)
[2024-01-15 06:37] LABS: Band 4 % (5-11); Blast 2 % (0-0); Hypochromia SLIGHT = 6-15 cells HPF (0-5); Lymphocytes 13 % (21-51); Metamyelocyte 14 % (0-0); Microcytosis SLIGHT = 6-15 cells HPF (0-5); Monocytes 11 % (0-10); Myelocyte 19 % (0-0); Neutrophil 33 % (42-75); Nucleated RBC (Manual Ct) 3 % (0); Ovalocytes SLIGHT = 2-5 cells HPF (0-1); Platelet Adequacy Comment Significant Decrease; Polychromasia SLIGHT = 2-3 cells HPF (0-2); Promyelocytes 4 % (0-0); Target Cells SLIGHT = 2-5 cells HPF (0-1); Tear Drops SLIGHT = 2-5 cells HPF (0-1)
[2024-01-15] MEDS: Sevelamer Carbonate 800 MG TAB PO SCH (11:44)
[2024-01-15] MEDS: SODIUM CHLORIDE 0.9% IVPB SCH ×3 (14:49→17:46)
[2024-01-15] MEDS: RASBURICASE IVPB SCH ×3 (14:49→17:46)
[2024-01-15] MEDS ORDERED: SODIUM CHLORIDE 0.9% IVPB SCH (16:00)
[2024-01-15] MEDS ORDERED: RASBURICASE IVPB SCH (16:00)
[2024-01-16] MEDS: Sodium Chloride 0.9% 1,000 ML IV SCH (04:21)
[2024-01-16 04:52] LABS: Hemoglobin 7.5 g/dL (14.0-18.0); Mean Corpuscular HGB CONC 31.3 g/dL (32.0-36.0); Mean Corpuscular Hemoglobin 26.8 pg (27.0-31.0); Mean Corpuscular Volume 85.7 fL (78.0-98.0); Platelet Count 31 10x3/uL (130-400); RBC Distribution Width 17.3 % (11.5-14.5)
[2024-01-16 04:55] LABS: Fibrinogen 513 mg/dL (253-463)
[2024-01-16 05:00] LABS: Phosphorus 7.6 mg/dL (2.3-4.7)
[2024-01-16 05:04] LABS: ALT (SGPT) 9 U/L (8-55); AST (SGOT) 41 U/L (5-34); Albumin 2.9 g/dL (3.4-4.8); Alkaline Phosphatase 139 U/L (40-110); Anion Gap 16 mmol/L (10-20); BUN (Urea Nitrogen) 56 mg/dL (8.4-25.7); Bilirubin, Direct 1.1 mg/dL (0.1-0.3); Bilirubin, Total 3.1 mg/dL (0.2-1.2); Calc. Creatinine Clearance 29 mL/min (70-130); Calcium 7.8 mg/dL (7.8-10.44); Carbon Dioxide 19 mmol/L (23-31); Chloride 107 mmol/L (98-107); Estimated GFR 24; Globulin 2.9 g/dL (2.4-3.5); Glucose 129 mg/dL (83-110); Potassium 5.6 mmol/L (3.5-5.1); Protein, Total 5.8 g/dL (5.8-8.1); Sodium 136 mmol/L (136-145); Uric Acid Less than 1.0 mg/dL (3.5-7.2)
[2024-01-16 05:36] LABS: Band 5 % (5-11); Blast 1 % (0-0); Dohle Bodies SLIGHT; Eosinophils 1 % (0-10); Hypochromia SLIGHT = 6-15 cells HPF (0-5); Lymphocytes 8 % (21-51); Metamyelocyte 11 % (0-0); Microcytosis SLIGHT = 6-15 cells HPF (0-5); Monocytes 11 % (0-10); Myelocyte 13 % (0-0); Neutrophil 50 % (42-75); Nucleated RBC (Manual Ct) 3 % (0); Platelet Adequacy Comment Significant Decrease; Polychromasia MODERATE = 3-4 cells HPF (0-2); Promyelocytes 2 % (0-0); Schistocytes SLIGHT = 2-5 cells HPF (0-1); Tear Drops SLIGHT = 2-5 cells HPF (0-1); Toxic Granulation SLIGHT
[2024-01-16 05:45] LABS: D-Dimer Test Greater than 20.00 mcg/mL (0.27-0.43)
[2024-01-16] MEDS ORDERED: AZACITIDINE IVPB SCH (08:30)
[2024-01-16] MEDS ORDERED: SODIUM CHLORIDE 0.9% IVPB SCH ×2 (08:30→16:00)
[2024-01-16] MEDS: Sodium Polystyrene Sulfonate 15 GM (60 mL) BOT PO SCH (10:31)
[2024-01-16] MEDS: Furosemide 100 MG (10 mL) VIAL SLOW IVP SCH ×3 (10:32→17:21)
[2024-01-16] MEDS ORDERED: Furosemide 100 MG (10 mL) VIAL SLOW IVP SCH ×2 (12:00→14:00)
[2024-01-16] MEDS: Ondansetron 2MG/ML MDV 10 MG in Sodium Chloride 0.9% 50 ML IVPB SCH (13:11)
[2024-01-16] MEDS: Sevelamer Carbonate 800 MG TAB PO SCH (13:13)
[2024-01-16] MEDS: Lidocaine 4% Cream 5 GM TUBE w/ Tegaderm TOP SCH (13:27)
[2024-01-16] MEDS: Calcium Carbonate 500 MG ChewTAB PO PRN (14:50)
[2024-01-16] MEDS: Magnesium Sulfate 3 GM in Sodium Chloride 0.9% 100 ML IVPB SCH (15:42)
[2024-01-16] MEDS: Digoxin 0.5 MG/2 ML AMP SLOW IVP SCH ×2 (15:52→18:09)
[2024-01-16] MEDS ORDERED: RASBURICASE IVPB SCH (16:00)
[2024-01-16] MEDS: traMADol HCl 50 MG TAB PO PRN (17:05)
[2024-01-16] MEDS: Bisacodyl 5 MG TAB PO SCH (17:05)
[2024-01-16] MEDS: Amiodarone 150 MG, Admixture Fee 1 EACH in Dextrose 5% in Water 100 ML IVPB SCH (17:09)
[2024-01-16] MEDS: Amiodarone 450 MG, Admixture Fee 1 EACH in Dextrose 5% in Water 250 ML IVPB SCH (17:16)
[2024-01-16] MEDS: Bumetanide 1 MG/4 ML VIAL IVP SCH (20:55)
[2024-01-17 05:07] LABS: ALT (SGPT) 8 U/L (8-55); AST (SGOT) 36 U/L (5-34); Albumin 2.9 g/dL (3.4-4.8); Alkaline Phosphatase 137 U/L (40-110); Anion Gap 21 mmol/L (10-20); BUN (Urea Nitrogen) 82 mg/dL (8.4-25.7); Bilirubin, Total 3.3 mg/dL (0.2-1.2); Calc. Creatinine Clearance 23 mL/min (70-130); Calcium 8.1 mg/dL (7.8-10.44); Carbon Dioxide 21 mmol/L (23-31); Chloride 102 mmol/L (98-107); Estimated GFR 18; Globulin 3.1 g/dL (2.4-3.5); Glucose 135 mg/dL (83-110); Phosphorus 10.7 mg/dL (2.3-4.7); Potassium 5.9 mmol/L (3.5-5.1); Sodium 138 mmol/L (136-145); Uric Acid Less than 1.0 mg/dL (3.5-7.2)
[2024-01-17] MEDS: Bumetanide 1 MG/4 ML VIAL IVP SCH (05:16)
[2024-01-17 05:18] LABS: Hematocrit 23.7 % (42.0-52.0); Hemoglobin 7.3 g/dL (14.0-18.0); Mean Corpuscular HGB CONC 30.8 g/dL (32.0-36.0); Mean Corpuscular Hemoglobin 26.6 pg (27.0-31.0); Mean Corpuscular Volume 86.5 fL (78.0-98.0); Platelet Count 26 10x3/uL (130-400); RBC Distribution Width 17.4 % (11.5-14.5); Red Blood Cell (RBC) Count 2.74 mill/uL (4.70-6.10)
[2024-01-17] MEDS ORDERED: Furosemide 100 MG (10 mL) VIAL SLOW IVP SCH ×2 (06:00)
[2024-01-17 07:44] LABS: Band 5 % (5-11); Lymphocytes 28 % (21-51); Metamyelocyte 3 % (0-0); Microcytosis SLIGHT = 6-15 cells HPF (0-5); Monocytes 17 % (0-10); Neutrophil 46 % (42-75); Nucleated RBC (Manual Ct) 21 % (0); Platelet Adequacy Comment Significant Decrease; Polychromasia MODERATE = 3-4 cells HPF (0-2); Schistocytes SLIGHT = 2-5 cells HPF (0-1); Stomatocytes SLIGHT = 2-5 cells HPF (0-1); Target Cells SLIGHT = 2-5 cells HPF (0-1)
[2024-01-17] MEDS ORDERED: Bisacodyl 10 MG SUPP PR PRN (10:58)
[2024-01-17] MEDS: Bisacodyl 10 MG SUPP PR SCH (13:04)
[2024-01-17] MEDS: LOKELMA 10 GM PACKET PO SCH ×2 (14:52→23:47)
[2024-01-17] MEDS: Sodium Chloride 0.9% 1,000 ML IV SCH (18:05)
[2024-01-17 18:37] LABS: Anion Gap 19 mmol/L (10-20); BUN (Urea Nitrogen) 92 mg/dL (8.4-25.7); Calc. Creatinine Clearance 20 mL/min (70-130); Calcium 7.9 mg/dL (7.8-10.44); Carbon Dioxide 24 mmol/L (23-31); Chloride 99 mmol/L (98-107); Estimated GFR 15; Glucose 143 mg/dL (83-110); Potassium 5.3 mmol/L (3.5-5.1); Sodium 137 mmol/L (136-145)
[2024-01-17 18:39] LABS: Bilirubin Negative (Negative); Blood, Urine 1+ (Negative); CAUTI Indications for Culture Pelvic or flank pain; Clarity Clear (Clear); Glucose, Urine (Dipstick) Normal (Negative); Ketone, Urine Negative (Negative); Leukocyte Negative Leu/uL (Negative); Nitrite Negative (Negative); Protein, Urine (Dipstick) Negative (Neg-Trace); RBC/HPF 0-3 HPF (0-3); Specific Gravity, Urine 1.003 (1.002-1.036); Squamous Epithelial None Seen HPF (0-3); Urobilinogen Normal mg/dL (Less than 2); WBC/HPF None Seen HPF (0-3)
[2024-01-17 19:12] LABS: Bacteria/HPF Rare-Few HPF (None Seen)
[2024-01-17 19:13] LABS: Urine Culture Reflex No No
[2024-01-17] MEDS: Bisacodyl 5 MG TAB PO PRN (20:18)
[2024-01-18 04:04] LABS: Hematocrit 23.8 % (42.0-52.0); Hemoglobin 7.2 g/dL (14.0-18.0); Mean Corpuscular HGB CONC 30.3 g/dL (32.0-36.0); Mean Corpuscular Hemoglobin 26.3 pg (27.0-31.0); Mean Corpuscular Volume 86.9 fL (78.0-98.0); Platelet Count 32 10x3/uL (130-400); RBC Distribution Width 17.2 % (11.5-14.5); Red Blood Cell (RBC) Count 2.74 mill/uL (4.70-6.10)
[2024-01-18 04:24] LABS: ALT (SGPT) 9 U/L (8-55); AST (SGOT) 29 U/L (5-34); Albumin 2.9 g/dL (3.4-4.8); Alkaline Phosphatase 141 U/L (40-110); Anion Gap 21 mmol/L (10-20); BUN (Urea Nitrogen) 98 mg/dL (8.4-25.7); Bilirubin, Total 2.9 mg/dL (0.2-1.2); Calc. Creatinine Clearance 19 mL/min (70-130); Calcium 7.6 mg/dL (7.8-10.44); Carbon Dioxide 25 mmol/L (23-31); Chloride 97 mmol/L (98-107); Estimated GFR 15; Globulin 3.3 g/dL (2.4-3.5); Glucose 131 mg/dL (83-110); Phosphorus 11.3 mg/dL (2.3-4.7); Potassium 5.1 mmol/L (3.5-5.1); Protein, Total 6.2 g/dL (5.8-8.1); Sodium 138 mmol/L (136-145); Uric Acid 1.3 mg/dL (3.5-7.2)
[2024-01-18 04:34] LABS: Anisocytosis SLIGHT = 6-15 cells HPF (0-5); Band 5 % (5-11); Hypochromia SLIGHT = 6-15 cells HPF (0-5); Lymphocytes 8 % (21-51); Metamyelocyte 1 % (0-0); Microcytosis SLIGHT = 6-15 cells HPF (0-5); Monocytes 17 % (0-10); Myelocyte 2 % (0-0); Neutrophil 66 % (42-75); Nucleated RBC (Manual Ct) 14 % (0); Platelet Adequacy Comment Significant Decrease; Polychromasia MODERATE = 3-4 cells HPF (0-2); Reactive Lymphocytes 1 % (0-10); Target Cells SLIGHT = 2-5 cells HPF (0-1); Tear Drops SLIGHT = 2-5 cells HPF (0-1)
[2024-01-18] MEDS: Amiodarone 200 MG TAB PO SCH (09:24)
[2024-01-18] MEDS: traMADol HCl 50 MG TAB PO PRN (11:54)
[2024-01-19 05:01] LABS: ALT (SGPT) 11 U/L (8-55); AST (SGOT) 28 U/L (5-34); Albumin 2.9 g/dL (3.4-4.8); Alkaline Phosphatase 141 U/L (40-110); Anion Gap 23 mmol/L (10-20); BUN (Urea Nitrogen) 106 mg/dL (8.4-25.7); Bilirubin, Total 3.4 mg/dL (0.2-1.2); Calc. Creatinine Clearance 15 mL/min (70-130); Calcium 7.4 mg/dL (7.8-10.44); Carbon Dioxide 23 mmol/L (23-31); Chloride 96 mmol/L (98-107); Estimated GFR 11; Globulin 3.6 g/dL (2.4-3.5); Glucose 147 mg/dL (83-110); Phosphorus 9.7 mg/dL (2.3-4.7); Potassium 4.6 mmol/L (3.5-5.1); Protein, Total 6.5 g/dL (5.8-8.1); Sodium 137 mmol/L (136-145); Uric Acid 2.4 mg/dL (3.5-7.2)
[2024-01-19 05:06] LABS: Hematocrit 22.9 % (42.0-52.0); Hemoglobin 7.1 g/dL (14.0-18.0); Mean Corpuscular Hemoglobin 26.8 pg (27.0-31.0); Mean Corpuscular Volume 86.4 fL (78.0-98.0); Platelet Count 42 10x3/uL (130-400); RBC Distribution Width 17.4 % (11.5-14.5); Red Blood Cell (RBC) Count 2.65 mill/uL (4.70-6.10)
[2024-01-19 05:58] LABS: Anisocytosis SLIGHT = 6-15 cells HPF (0-5); Hypochromia SLIGHT = 6-15 cells HPF (0-5); Monocytes 14 % (0-10); Neutrophil 86 % (42-75); Nucleated RBC (Manual Ct) 10 % (0); Platelet Adequacy Comment Platelets Decreased; Polychromasia SLIGHT = 2-3 cells HPF (0-2); Smudge Cells 4.8 %
[2024-01-20 05:00] LABS: Hematocrit 20.5 % (42.0-52.0); Hemoglobin 6.5 g/dL (14.0-18.0); Mean Corpuscular HGB CONC 31.7 g/dL (32.0-36.0); Mean Corpuscular Volume 85.1 fL (78.0-98.0); Mean Platelet Volume 12.5 fL (7.4-10.4); Platelet Count 49 10x3/uL (130-400); RBC Distribution Width 16.6 % (11.5-14.5); Red Blood Cell (RBC) Count 2.41 mill/uL (4.70-6.10)
[2024-01-20 05:30] LABS: Band 1 % (5-11); Hypochromia SLIGHT = 6-15 cells HPF (0-5); Lymphocytes 2 % (21-51); Monocytes 15 % (0-10); Neutrophil 82 % (42-75); Nucleated RBC (Manual Ct) 2 % (0); Platelet Adequacy Comment Platelets Decreased; Polychromasia MODERATE = 3-4 cells HPF (0-2); Tear Drops SLIGHT = 2-5 cells HPF (0-1)
[2024-01-20 05:48] LABS: ALT (SGPT) 8 U/L (8-55); AST (SGOT) 25 U/L (5-34); Albumin 2.6 g/dL (3.4-4.8); Alkaline Phosphatase 108 U/L (40-110); Anion Gap 20 mmol/L (10-20); BUN (Urea Nitrogen) 117 mg/dL (8.4-25.7); Bilirubin, Total 3.4 mg/dL (0.2-1.2); Calc. Creatinine Clearance 13 mL/min (70-130); Carbon Dioxide 23 mmol/L (23-31); Chloride 96 mmol/L (98-107); Estimated GFR 9; Globulin 3.5 g/dL (2.4-3.5); Glucose 148 mg/dL (83-110); Phosphorus 7.7 mg/dL (2.3-4.7); Potassium 3.9 mmol/L (3.5-5.1); Protein, Total 6.1 g/dL (5.8-8.1); Sodium 135 mmol/L (136-145); Uric Acid 2.5 mg/dL (3.5-7.2)
[2024-01-21 04:53] LABS: Hematocrit 23.4 % (42.0-52.0); Hemoglobin 7.6 g/dL (14.0-18.0); Mean Corpuscular HGB CONC 32.5 g/dL (32.0-36.0); Mean Corpuscular Hemoglobin 27.3 pg (27.0-31.0); Mean Corpuscular Volume 84.2 fL (78.0-98.0); Platelet Count 54 10x3/uL (130-400); RBC Distribution Width 16.2 % (11.5-14.5); Red Blood Cell (RBC) Count 2.78 mill/uL (4.70-6.10)
[2024-01-21 05:22] LABS: ALT (SGPT) 10 U/L (8-55); AST (SGOT) 28 U/L (5-34); Albumin 2.4 g/dL (3.4-4.8); Alkaline Phosphatase 108 U/L (40-110); Anion Gap 20 mmol/L (10-20); BUN (Urea Nitrogen) 120 mg/dL (8.4-25.7); Bilirubin, Total 3.1 mg/dL (0.2-1.2); Calc. Creatinine Clearance 14 mL/min (70-130); Calcium 7.1 mg/dL (7.8-10.44); Carbon Dioxide 22 mmol/L (23-31); Chloride 96 mmol/L (98-107); Estimated GFR 10; Globulin 3.7 g/dL (2.4-3.5); Glucose 153 mg/dL (83-110); Phosphorus 6.1 mg/dL (2.3-4.7); Potassium 3.3 mmol/L (3.5-5.1); Protein, Total 6.1 g/dL (5.8-8.1); Sodium 135 mmol/L (136-145); Uric Acid 2.7 mg/dL (3.5-7.2)
[2024-01-21 05:32] LABS: Anisocytosis SLIGHT = 6-15 cells HPF (0-5); Dohle Bodies SLIGHT; Lymphocytes 4 % (21-51); Metamyelocyte 1 % (0-0); Microcytosis SLIGHT = 6-15 cells HPF (0-5); Monocytes 17 % (0-10); Neutrophil 78 % (42-75); Nucleated RBC (Manual Ct) 3 % (0); Platelet Adequacy Comment Significant Decrease; Polychromasia SLIGHT = 2-3 cells HPF (0-2); Target Cells SLIGHT = 2-5 cells HPF (0-1); Tear Drops SLIGHT = 2-5 cells HPF (0-1); Toxic Granulation SLIGHT
[2024-01-21] MEDS: Bumetanide 1 MG/4 ML VIAL IVP SCH ×2 (06:32→15:56)
[2024-01-21] MEDS: Potassium Chloride 20 MEQ TAB PO SCH (08:50)
[2024-01-21] MEDS: oxyCODONE 5 MG TAB PO PRN (12:17)
[2024-01-22] MEDS: Digoxin 0.5 MG/2 ML AMP SLOW IVP SCH (01:41)
[2024-01-22 04:57] LABS: Hematocrit 25.1 % (42.0-52.0); Hemoglobin 7.9 g/dL (14.0-18.0); Mean Corpuscular HGB CONC 31.5 g/dL (32.0-36.0); Mean Corpuscular Hemoglobin 27.3 pg (27.0-31.0); Mean Corpuscular Volume 86.9 fL (78.0-98.0); Platelet Count 64 10x3/uL (130-400); RBC Distribution Width 16.4 % (11.5-14.5); Red Blood Cell (RBC) Count 2.89 mill/uL (4.70-6.10)
[2024-01-22 05:15] LABS: ALT (SGPT) 10 U/L (8-55); AST (SGOT) 27 U/L (5-34); Albumin 2.5 g/dL (3.4-4.8); Alkaline Phosphatase 119 U/L (40-110); Anion Gap 20 mmol/L (10-20); BUN (Urea Nitrogen) 119 mg/dL (8.4-25.7); Bilirubin, Total 2.6 mg/dL (0.2-1.2); Calc. Creatinine Clearance 16 mL/min (70-130); Calcium 7.4 mg/dL (7.8-10.44); Carbon Dioxide 25 mmol/L (23-31); Chloride 95 mmol/L (98-107); Estimated GFR 12; Globulin 4.1 g/dL (2.4-3.5); Glucose 149 mg/dL (83-110); Phosphorus 5.8 mg/dL (2.3-4.7); Potassium 3.5 mmol/L (3.5-5.1); Protein, Total 6.6 g/dL (5.8-8.1); Sodium 136 mmol/L (136-145); Uric Acid 3.7 mg/dL (3.5-7.2)
[2024-01-22 05:26] LABS: Anisocytosis SLIGHT = 6-15 cells HPF (0-5); Band 1 % (5-11); Hypochromia SLIGHT = 6-15 cells HPF (0-5); Lymphocytes 13 % (21-51); Monocytes 15 % (0-10); Neutrophil 72 % (42-75); Nucleated RBC (Manual Ct) 11 % (0); Platelet Adequacy Comment Significant Decrease; Polychromasia MODERATE = 3-4 cells HPF (0-2)
[2024-01-23] MEDS: Bumetanide 1 MG/4 ML VIAL IVP SCH (03:28)
[2024-01-23] MEDS: Meclizine HCl 12.5 MG TAB PO SCH (04:04)
[2024-01-23 05:28] LABS: BUN (Urea Nitrogen) 128 mg/dL (8.4-25.7)
[2024-01-23 05:29] LABS: ALT (SGPT) 14 U/L (8-55); AST (SGOT) 30 U/L (5-34); Albumin 2.5 g/dL (3.4-4.8); Alkaline Phosphatase 139 U/L (40-110); Anion Gap 22 mmol/L (10-20); Bilirubin, Total 2.2 mg/dL (0.2-1.2); Calc. Creatinine Clearance 15 mL/min (70-130); Calcium 7.6 mg/dL (7.8-10.44); Carbon Dioxide 24 mmol/L (23-31); Chloride 95 mmol/L (98-107); Estimated GFR 11; Globulin 4.1 g/dL (2.4-3.5); Glucose 211 mg/dL (83-110); Phosphorus 7.8 mg/dL (2.3-4.7); Potassium 3.9 mmol/L (3.5-5.1); Protein, Total 6.6 g/dL (5.8-8.1); Sodium 137 mmol/L (136-145); Uric Acid 6.3 mg/dL (3.5-7.2)
[2024-01-23 05:35] LABS: Hematocrit 24.6 % (42.0-52.0); Hemoglobin 7.7 g/dL (14.0-18.0); Mean Corpuscular HGB CONC 31.3 g/dL (32.0-36.0); Mean Corpuscular Hemoglobin 27.5 pg (27.0-31.0); Mean Corpuscular Volume 87.9 fL (78.0-98.0); Platelet Count 56 10x3/uL (130-400); RBC Distribution Width 16.8 % (11.5-14.5)
[2024-01-23 06:18] LABS: Anisocytosis SLIGHT = 6-15 cells HPF (0-5); Lymphocytes 11 % (21-51); Macrocytosis SLIGHT = 6-15 cells HPF (0-5); Metamyelocyte 1 % (0-0); Monocytes 16 % (0-10); Myelocyte 2 % (0-0); Neutrophil 68 % (42-75); Nucleated RBC (Manual Ct) 10 % (0); Platelet Adequacy Comment Platelets Decreased; Polychromasia SLIGHT = 2-3 cells HPF (0-2); Reactive Lymphocytes 2 % (0-10)
[2024-01-24 04:25] LABS: Hematocrit 23.9 % (42.0-52.0); Hemoglobin 7.3 g/dL (14.0-18.0); Mean Corpuscular HGB CONC 30.5 g/dL (32.0-36.0); Mean Corpuscular Hemoglobin 26.8 pg (27.0-31.0); Mean Corpuscular Volume 87.9 fL (78.0-98.0); Platelet Count 46 10x3/uL (130-400); RBC Distribution Width 17.2 % (11.5-14.5); Red Blood Cell (RBC) Count 2.72 mill/uL (4.70-6.10)
[2024-01-24 04:35] LABS: Anion Gap 22 mmol/L (10-20); Calc. Creatinine Clearance 17 mL/min (70-130); Calcium 7.4 mg/dL (7.8-10.44); Carbon Dioxide 25 mmol/L (23-31); Chloride 93 mmol/L (98-107); Estimated GFR 15; Glucose 175 mg/dL (83-110); Potassium 3.6 mmol/L (3.5-5.1); Sodium 136 mmol/L (136-145)
[2024-01-24 04:47] LABS: BUN (Urea Nitrogen) 128 mg/dL (8.4-25.7)
[2024-01-24 05:14] LABS: Hypochromia SLIGHT = 6-15 cells HPF (0-5); Large Platelets 1.9 % (0-5); Lymphocytes 9 % (21-51); Metamyelocyte 1 % (0-0); Monocytes 11 % (0-10); Neutrophil 78 % (42-75); Nucleated RBC (Manual Ct) 3 % (0); Platelet Adequacy Comment Platelets Decreased; Polychromasia MODERATE = 3-4 cells HPF (0-2); Promyelocytes 1 % (0-0); Smudge Cells 4.8 %; Tear Drops SLIGHT = 2-5 cells HPF (0-1)
[2024-01-24 14:41] VITALS: BMI 25.4
[2024-01-25 04:22] LABS: Hematocrit 24.5 % (42.0-52.0); Hemoglobin 7.6 g/dL (14.0-18.0); Mean Corpuscular Hemoglobin 27.2 pg (27.0-31.0); Mean Corpuscular Volume 87.8 fL (78.0-98.0); Platelet Count 35 10x3/uL (130-400); RBC Distribution Width 17.2 % (11.5-14.5); Red Blood Cell (RBC) Count 2.79 mill/uL (4.70-6.10)
[2024-01-25 04:34] LABS: BUN (Urea Nitrogen) 137 mg/dL (8.4-25.7)
[2024-01-25 05:12] LABS: Anisocytosis SLIGHT = 6-15 cells HPF (0-5); Lymphocytes 7 % (21-51); Monocytes 9 % (0-10); Myelocyte 1 % (0-0); Neutrophil 83 % (42-75); Nucleated RBC (Manual Ct) 9 % (0); Platelet Adequacy Comment Significant Decrease; Polychromasia MODERATE = 3-4 cells HPF (0-2); Smudge Cells 5.9 %
[2024-01-25 05:16] LABS: Albumin 2.4 g/dL (3.4-4.8); Anion Gap 20 mmol/L (10-20); Calc. Creatinine Clearance 18 mL/min (70-130); Calcium 7.6 mg/dL (7.8-10.44); Carbon Dioxide 26 mmol/L (23-31); Chloride 95 mmol/L (98-107); Estimated GFR 15; Glucose 187 mg/dL (83-110); Potassium 3.9 mmol/L (3.5-5.1); Sodium 137 mmol/L (136-145)
[2024-01-25] MEDS: Lactated Ringer's 1,000 ML IV SCH (10:04)
[2024-01-26 05:53] LABS: Hematocrit 21.8 % (42.0-52.0); Hemoglobin 6.9 g/dL (14.0-18.0); Mean Corpuscular HGB CONC 31.7 g/dL (32.0-36.0); Mean Corpuscular Hemoglobin 27.2 pg (27.0-31.0); Mean Corpuscular Volume 85.8 fL (78.0-98.0); Platelet Count 27 10x3/uL (130-400); RBC Distribution Width 17.3 % (11.5-14.5); Red Blood Cell (RBC) Count 2.54 mill/uL (4.70-6.10)
[2024-01-26 06:58] LABS: Reflex for Review?? YES
[2024-01-26 07:48] LABS: Band 1 % (5-11); Lymphocytes 17 % (21-51); Monocytes 12 % (0-10); Neutrophil 68 % (42-75); Nucleated RBC (Manual Ct) 8 % (0); Platelet Adequacy Comment Significant Decrease; Polychromasia SLIGHT = 2-3 cells HPF (0-2); Reactive Lymphocytes 3 % (0-10)
[2024-01-26 10:57] LABS: BUN (Urea Nitrogen) 130 mg/dL (8.4-25.7)
[2024-01-26 11:00] LABS: Albumin 2.3 g/dL (3.4-4.8); Anion Gap 18 mmol/L (10-20); Calc. Creatinine Clearance 21 mL/min (70-130); Calcium 7.8 mg/dL (7.8-10.44); Carbon Dioxide 26 mmol/L (23-31); Chloride 97 mmol/L (98-107); Estimated GFR 19; Glucose 244 mg/dL (83-110); Phosphorus 5.3 mg/dL (2.3-4.7); Potassium 3.8 mmol/L (3.5-5.1); Sodium 137 mmol/L (136-145)
[2024-01-26] MEDS: Oxymetazoline HCl 0.05% (30 ML BOT) NS SCH (14:08)
[2024-01-26] MEDS: Lorazepam 2 MG/ML VIAL SLOW IVP SCH (17:46)
[2024-01-26] MEDS: Lactated Ringer's 1,000 ML IV SCH (17:46)
[2024-01-26] MEDS: Acetaminophen 650 MG Suppository PR PRN (18:15)
[2024-01-26] MEDS: Sodium Chloride 0.9% 500 ML IV SCH (21:33)
[2024-01-27 02:29] VITALS: TEMP 102.4
[2024-01-27 02:30] VITALS: BP 84/40
[2024-01-31 07:51] LABS: Reference Lab Name NEO
== END 2024-01-27 03:20 | disposition expired | DRG 834 ==
LOC: 2NO 18:16 → MSONC 01-12 17:02 → 2NO 01-16 15:55 → SURG A 01-18 22:32 → 2NO 01-20 21:09
PROVIDERS: ADMIT Family Medicine; ATTEND Internal Medicine
PROC: 30233N1 Transfusion of Nonautologous Red Blood Cells into Peripheral Vein, Percutaneous Approach (ICD-10-PCS; 2024-01-10)
PROC: 6A551Z2 Pheresis of Platelets, Multiple (ICD-10-PCS; 2024-01-10)
PROC: 079T3ZX Drainage of Bone Marrow, Percutaneous Approach, Diagnostic (ICD-10-PCS; principal; 2024-01-11)
PROC: 07DR3ZX Extraction of Iliac Bone Marrow, Percutaneous Approach, Diagnostic (ICD-10-PCS; 2024-01-11)
DX: C92.00 Acute myeloblastic leukemia, not having achieved remission (principal); D61.810 Antineoplastic chemotherapy induced pancytopenia; E88.3 Tumor lysis syndrome; G93.41 Metabolic encephalopathy; J81.0 Acute pulmonary edema; J96.01 Acute respiratory failure with hypoxia; D62 Acute posthemorrhagic anemia; C85.90 Non-Hodgkin lymphoma, unspecified, unspecified site; N17.9 Acute kidney failure, unspecified; I42.9 Cardiomyopathy, unspecified; I5A Non-ischemic myocardial injury (non-traumatic); I48.92 Unspecified atrial flutter; N18.4 Chronic kidney disease, stage 4 (severe); I47.10 Supraventricular tachycardia, unspecified; E87.20 Acidosis, unspecified; Z51.5 Encounter for palliative care; Z66 Do not resuscitate; D46.9 Myelodysplastic syndrome, unspecified; I48.0 Paroxysmal atrial fibrillation; D69.6 Thrombocytopenia, unspecified; D63.1 Anemia in chronic kidney disease; N40.0 Benign prostatic hyperplasia without lower urinary tract symptoms; K21.9 Gastro-esophageal reflux disease without esophagitis; K04.7 Periapical abscess without sinus; M19.90 Unspecified osteoarthritis, unspecified site; E78.5 Hyperlipidemia, unspecified; E80.6 Other disorders of bilirubin metabolism; E87.70 Fluid overload, unspecified; E83.39 Other disorders of phosphorus metabolism; R53.81 Other malaise; M25.511 Pain in right shoulder; M25.571 Pain in right ankle and joints of right foot; G89.29 Other chronic pain; W08.XXXA Fall from other furniture, initial encounter; Z87.891 Personal history of nicotine dependence; R00.1 Bradycardia, unspecified; I95.9 Hypotension, unspecified; R33.9 Retention of urine, unspecified; K59.00 Constipation, unspecified; E87.5 Hyperkalemia; E88.09 Other disorders of plasma-protein metabolism, not elsewhere classified; Z90.49 Acquired absence of other specified parts of digestive tract; Z92.21 Personal history of antineoplastic chemotherapy; Z87.442 Personal history of urinary calculi; Z88.5 Allergy status to narcotic agent; Z88.8 Allergy status to other drugs, medicaments and biological substances; Z92.3 Personal history of irradiation; Z90.79 Acquired absence of other genital organ(s); I12.9 Hypertensive chronic kidney disease with stage 1 through stage 4 chronic kidney disease, or unspecified chronic kidney disease; F03.90 Unspecified dementia, unspecified severity, without behavioral disturbance, psychotic disturbance, mood disturbance, and anxiety
CPT/HCPCS: 36415; 36416; 36430; 38222; 71045; 74018; 74176; 76770; 77012; 78451; 80048; 80053; 80069; 80076; 81001; 83615; 83735; 83880; 84100; 84484; 84550; 85014; 85018; 85025; 85049; 85060; 85097; 85379; 85384; 86850; 86900; 86901; 88184; 88185; 88237; 88264; 88280; 88305; 88311; 88313; 88341; 88342; 93005; 93010; 93306; 97139; A9540; J0282; J1160; J1940; J2060; J2250; J2405; J2783; J3010; J3475; J3490; J7030; J7070; J7120; P9016; P9035